=== PATIENT | male | born 1965 | race Caucasian/White ===

== ENCOUNTER 2020-05-04 05:15 | Day surgery (SDC) | payer OTHER ==
[2020-05-01 17:46] VITALS: BMI 29.0
[2020-05-04] MEDS ORDERED: MIDAZOLAM HCL 2 MG/2 ML SINGLE DOSE VIAL ONE ×2 (17:49)
[2020-05-04 20:03] VITALS: BP 158/86; PULSE 78; TEMP 98.2
== END 2020-05-04 20:15 | disposition home or self-care (01) ==
LOC: JASU-SURG 05:15
PROVIDERS: ATTEND Urology
PROC: 0TF3XZZ Fragmentation in Right Kidney Pelvis, External Approach (ICD-10-PCS; principal; 2020-05-04 15:00)
DX: N20.0 Calculus of kidney (principal)

== ENCOUNTER 2021-03-08 04:31 | Day surgery (SDC) | payer OTHER ==
[2021-03-05 11:31] VITALS: BMI 29.0
[2021-03-08] MEDS ORDERED: MIDAZOLAM HCL 2 MG/2 ML SINGLE DOSE VIAL ONE (12:07)
[2021-03-08 14:59] VITALS: BP 157/80; PULSE 66; TEMP 97.3
== END 2021-03-08 14:35 | disposition home or self-care (01) ==
LOC: JASU-SURG 04:31
PROVIDERS: ATTEND Urology
PROC: 0TF3XZZ Fragmentation in Right Kidney Pelvis, External Approach (ICD-10-PCS; principal; 2021-03-08 11:30)
DX: N20.0 Calculus of kidney (principal)

== ENCOUNTER 2021-03-08 19:16 | Inpatient (IN) | payer OTHER ==
[2021-03-08] MEDS ORDERED: LACTATED RINGERS SOLUTION 1000 ML INFUS.BAG IV ONE (20:00)
[2021-03-08] MEDS ORDERED: KETOROLAC TROMETHAMINE 15 MG/ML VIAL IVPUSH ONE ×2 (20:00→20:09)
[2021-03-08] MEDS ORDERED: KETOROLAC TROMETHAMINE 30 MG/1 ML VIAL ONE (20:09)
[2021-03-08 20:13] LABS: BASO % 0.1 % (0-2.0); HEMATOCRIT 41.1 % (35.4-49); HEMOGLOBIN 14.3 GM/dL (11.7-16.9); LYMPH % 5.8 % (8-40); MCH 31.6 pg (25.7-33.7); MCHC 34.6 g/dl (32.0-35.9); MEAN CELL VOLUME 91.1 fl (80-96); MEAN PLT VOLUME 8.7 fl (7.5-11.1); MONO % 3.6 % (3.8-10.2); NEUT % 90.5 % (42.8-82.8); PLATELET COUNT 229 10^3/uL (134-434); RBC 4.51 M/mm3 (4.00-5.60); RDW 13.4 % (11.9-15.9); WHITE BLOOD COUNT 13.4 K/mm3 (4.0-10.0)
[2021-03-08 20:31] LABS: CALCIUM 8.6 mg/dL (8.5-10.1)
[2021-03-08 20:32] LABS: ALBUMIN 3.8 g/dl (3.4-5.0); BLOOD UREA NITROGEN 10.5 mg/dL (7-18)
[2021-03-08 20:35] LABS: CREATININE 1.3 mg/dL (0.55-1.3)
[2021-03-08 20:37] LABS: BILIRUBIN,TOTAL 0.6 mg/dL (0.2-1); TOT PROT 6.9 g/dl (6.4-8.2)
[2021-03-08] MEDS ORDERED: morphine CARPU-JECT 2 MG/1 ML DISP.SYRIN IVPUSH ONE ×2 (20:53→22:08)
[2021-03-08] MEDS ORDERED: MORPHINE SULFATE 2 MG/ML VIAL ONE ×2 (20:58→22:28)
[2021-03-08 22:06] LABS: EPI CELLS 6 /uL (0-25.1); HYALINE CASTS 2 /uL (0-3.1); URINE APPEARANCE CLEAR; URINE BACTERIA 49 /uL (0-1359); URINE BILIRUBIN NEGATIVE (NEGATIVE); URINE COLOR YELLOW; URINE GLUCOSE (UA) NEGATIVE (NEGATIVE); URINE KETONE 1+ (NEGATIVE); URINE LEUK ESTERASE NEGATIVE (NEGATIVE); URINE NITRITE NEGATIVE (NEGATIVE); URINE PROTEIN 1+ (NEGATIVE); URINE RBC 682 /uL (0-23.9); URINE UROBILINOGEN 0.2 mg/dL (0.2-1.0); URINE WBC 12 /uL (0-25.8)
[2021-03-09] MEDS ORDERED: ACETAMINOPHEN 1000 MG/100 ML VIAL (NON FORMULARY) IVPB PRN (01:20)
[2021-03-09 02:54] LABS: INR 1.01 (0.83-1.09); PROTHROMBIN TIME (PATIENT) 12.4 SEC (9.7-13.0)
[2021-03-09 02:57] LABS: ACTIVATED PTT 27.8 SECONDS (25.2-36.5)
[2021-03-09 07:08] LABS: HEMATOCRIT 38.9 % (35.4-49); HEMOGLOBIN 13.7 GM/dL (11.7-16.9); MCHC 35.3 g/dl (32.0-35.9); MEAN CELL VOLUME 90.7 fl (80-96); MEAN PLT VOLUME 8.9 fl (7.5-11.1); PLATELET COUNT 196 10^3/uL (134-434); RBC 4.29 M/mm3 (4.00-5.60); RDW 13.4 % (11.9-15.9); WHITE BLOOD COUNT 9.9 K/mm3 (4.0-10.0)
[2021-03-09 07:30] LABS: BLOOD UREA NITROGEN 10.2 mg/dL (7-18); CALCIUM 8.4 mg/dL (8.5-10.1)
[2021-03-09 07:33] LABS: CREATININE 1.1 mg/dL (0.55-1.3)
[2021-03-09] MEDS ORDERED: MORPHINE SULFATE 2 MG/ML VIAL ONE (08:32)
[2021-03-09] MEDS: MORPHINE SULFATE 2 MG/ML VIAL IVPUSH PRN ×2 (08:37→16:57)
[2021-03-09] MEDS: SODIUM CHLORIDE 1,000 ML IV SCH ×2 (08:38→16:58)
[2021-03-09] MEDS ORDERED: TAMSULOSIN HCL 0.4 MG CAP ONE (10:17)
[2021-03-09] MEDS ORDERED: LISINOPRIL 20 MG TABLET ONE (10:17)
[2021-03-09] MEDS: TAMSULOSIN HCL 0.4 MG CAP PO SCH (10:21)
[2021-03-09] MEDS: LISINOPRIL 20 MG TABLET PO SCH (10:21)
[2021-03-09 15:44] LABS: BASO % 0.5 % (0-2.0); EOS % 0.4 % (0-4.5); HEMATOCRIT 37.5 % (35.4-49); HEMOGLOBIN 12.9 GM/dL (11.7-16.9); LYMPH % 22.5 % (8-40); MCH 31.2 pg (25.7-33.7); MCHC 34.3 g/dl (32.0-35.9); MEAN CELL VOLUME 90.9 fl (80-96); MEAN PLT VOLUME 8.5 fl (7.5-11.1); MONO % 8.3 % (3.8-10.2); NEUT % 68.3 % (42.8-82.8); PLATELET COUNT 199 10^3/uL (134-434); RBC 4.13 M/mm3 (4.00-5.60); RDW 13.4 % (11.9-15.9); WHITE BLOOD COUNT 7.4 K/mm3 (4.0-10.0)
[2021-03-09 18:22] VITALS: BMI 33.0
[2021-03-09 18:52] LABS: BASO % 0.4 % (0-2.0); EOS % 0.8 % (0-4.5); HEMATOCRIT 35.6 % (35.4-49); HEMOGLOBIN 12.3 GM/dL (11.7-16.9); LYMPH % 21.8 % (8-40); MCH 31.6 pg (25.7-33.7); MCHC 34.6 g/dl (32.0-35.9); MEAN CELL VOLUME 91.3 fl (80-96); MEAN PLT VOLUME 8.5 fl (7.5-11.1); MONO % 7.9 % (3.8-10.2); NEUT % 69.1 % (42.8-82.8); PLATELET COUNT 186 10^3/uL (134-434); RDW 13.6 % (11.9-15.9); WHITE BLOOD COUNT 8.5 K/mm3 (4.0-10.0)
[2021-03-10] MEDS: SODIUM CHLORIDE 1,000 ML IV SCH ×3 (01:46→18:06)
[2021-03-10 08:58] LABS: BASO % 0.4 % (0-2.0); EOS % 0.8 % (0-4.5); HEMATOCRIT 33.1 % (35.4-49); HEMOGLOBIN 11.5 GM/dL (11.7-16.9); LYMPH % 19.1 % (8-40); MCH 31.8 pg (25.7-33.7); MCHC 34.9 g/dl (32.0-35.9); MEAN PLT VOLUME 8.6 fl (7.5-11.1); MONO % 8.1 % (3.8-10.2); NEUT % 71.6 % (42.8-82.8); PLATELET COUNT 181 10^3/uL (134-434); RBC 3.63 M/mm3 (4.00-5.60); RDW 13.8 % (11.9-15.9); WHITE BLOOD COUNT 8.1 K/mm3 (4.0-10.0)
[2021-03-10 09:22] LABS: ALBUMIN 3.2 g/dl (3.4-5.0); BLOOD UREA NITROGEN 9.9 mg/dL (7-18); CALCIUM 7.9 mg/dL (8.5-10.1)
[2021-03-10 09:23] LABS: MAGNESIUM 2.2 mg/dL (1.8-2.4)
[2021-03-10 09:26] LABS: CREATININE 1.2 mg/dL (0.55-1.3); PHOSPHOROUS 2.1 mg/dL (2.5-4.9)
[2021-03-10 09:28] LABS: BILIRUBIN,TOTAL 0.8 mg/dL (0.2-1)
[2021-03-10 09:29] LABS: TOT PROT 5.9 g/dl (6.4-8.2)
[2021-03-10] MEDS: LISINOPRIL 20 MG TABLET PO SCH (10:01)
[2021-03-10] MEDS: TAMSULOSIN HCL 0.4 MG CAP PO SCH (10:01)
[2021-03-10] MEDS ORDERED: NAPH,MB-DB/K PH,MBDB POWDER PACKET PO ONE (10:11)
[2021-03-10] MEDS: MORPHINE SULFATE 2 MG/ML VIAL IVPUSH PRN ×2 (10:33→22:09)
[2021-03-10] MEDS: ARTIFICIAL TEARS (POLYVINYL ALCOHOL) OPTH DROPS OU SCH ×2 (15:37→22:10)
[2021-03-10 21:25] LABS: HEMATOCRIT 32.4 % (35.4-49); HEMOGLOBIN 11.1 GM/dL (11.7-16.9); MCH 31.3 pg (25.7-33.7); MCHC 34.1 g/dl (32.0-35.9); MEAN CELL VOLUME 91.7 fl (80-96); MEAN PLT VOLUME 8.3 fl (7.5-11.1); PLATELET COUNT 178 10^3/uL (134-434); RBC 3.54 M/mm3 (4.00-5.60); RDW 13.6 % (11.9-15.9); WHITE BLOOD COUNT 8.5 K/mm3 (4.0-10.0)
[2021-03-10] MEDS: DOCUSATE SODIUM 100 MG CAPSULE (FP) PO SCH (22:08)
[2021-03-11] MEDS: SODIUM CHLORIDE 1,000 ML IV SCH ×3 (03:14→22:32)
[2021-03-11] MEDS: ACETAMINOPHEN 325 MG TABLET (FP) PO PRN ×2 (06:47→18:31)
[2021-03-11 09:10] LABS: HEMATOCRIT 31.2 % (35.4-49); HEMOGLOBIN 10.9 GM/dL (11.7-16.9); MCH 32.1 pg (25.7-33.7); MEAN CELL VOLUME 91.7 fl (80-96); PLATELET COUNT 183 10^3/uL (134-434); RDW 13.2 % (11.9-15.9); WHITE BLOOD COUNT 9.1 K/mm3 (4.0-10.0)
[2021-03-11 09:35] LABS: BLOOD UREA NITROGEN 7.8 mg/dL (7-18); CALCIUM 7.5 mg/dL (8.5-10.1)
[2021-03-11 09:38] LABS: CREATININE 0.9 mg/dL (0.55-1.3)
[2021-03-11 09:40] LABS: BILIRUBIN,TOTAL 0.8 mg/dL (0.2-1)
[2021-03-11] MEDS: DOCUSATE SODIUM 100 MG CAPSULE (FP) PO SCH (09:48)
[2021-03-11] MEDS: TAMSULOSIN HCL 0.4 MG CAP PO SCH (09:48)
[2021-03-11] MEDS: NAPH,MB-DB/K PH,MBDB POWDER PACKET PO SCH ×2 (09:48→21:37)
[2021-03-11] MEDS: LISINOPRIL 20 MG TABLET PO SCH (09:48)
[2021-03-11] MEDS: ARTIFICIAL TEARS (POLYVINYL ALCOHOL) OPTH DROPS OU SCH ×2 (09:48→21:37)
[2021-03-11] MEDS: amLODIPine BESYLATE 5 MG TABLET (FP) PO SCH (09:48)
[2021-03-11] MEDS ORDERED: BISACODYL 10 MG SUPP.RECT PR ONE (11:09)
[2021-03-11 11:44] LABS: MAGNESIUM 2.2 mg/dL (1.8-2.4)
[2021-03-11 11:48] LABS: PHOSPHOROUS 2.5 mg/dL (2.5-4.9)
[2021-03-11 21:36] LABS: PH,URINE 6.5 (5.0-8.0); URINE APPEARANCE CLEAR; URINE BILIRUBIN NEGATIVE (NEGATIVE); URINE COLOR YELLOW; URINE GLUCOSE (UA) NEGATIVE (NEGATIVE); URINE KETONE NEGATIVE (NEGATIVE); URINE LEUK ESTERASE NEGATIVE (NEGATIVE); URINE NITRITE NEGATIVE (NEGATIVE); URINE PROTEIN NEGATIVE (NEGATIVE); URINE UROBILINOGEN 0.2 mg/dL (0.2-1.0)
[2021-03-11] MEDS ORDERED: DOCUSATE SODIUM 100 MG CAPSULE (FP) PO SCH (22:00)
[2021-03-12 08:43] LABS: BASO % 0.4 % (0-2.0); EOS % 1.4 % (0-4.5); HEMATOCRIT 30.8 % (35.4-49); LYMPH % 18.2 % (8-40); MCH 32.4 pg (25.7-33.7); MCHC 35.5 g/dl (32.0-35.9); MEAN CELL VOLUME 91.3 fl (80-96); MEAN PLT VOLUME 8.6 fl (7.5-11.1); MONO % 7.9 % (3.8-10.2); NEUT % 72.1 % (42.8-82.8); PLATELET COUNT 209 10^3/uL (134-434); RBC 3.37 M/mm3 (4.00-5.60); RDW 13.6 % (11.9-15.9); WHITE BLOOD COUNT 9.1 K/mm3 (4.0-10.0)
[2021-03-12 09:00] LABS: ALBUMIN 3.1 g/dl (3.4-5.0); BLOOD UREA NITROGEN 8.9 mg/dL (7-18)
[2021-03-12 09:02] LABS: CREATININE 0.9 mg/dL (0.55-1.3)
[2021-03-12 09:03] LABS: CALCIUM 8.1 mg/dL (8.5-10.1); MAGNESIUM 2.2 mg/dL (1.8-2.4); PHOSPHOROUS 2.8 mg/dL (2.5-4.9)
[2021-03-12 09:07] LABS: TOT PROT 6.2 g/dl (6.4-8.2)
[2021-03-12] MEDS: amLODIPine BESYLATE 5 MG TABLET (FP) PO SCH (10:56)
[2021-03-12] MEDS: NAPH,MB-DB/K PH,MBDB POWDER PACKET PO SCH (10:56)
[2021-03-12] MEDS: ARTIFICIAL TEARS (POLYVINYL ALCOHOL) OPTH DROPS OU SCH (10:56)
[2021-03-12] MEDS: LISINOPRIL 20 MG TABLET PO SCH (10:56)
[2021-03-12] MEDS: TAMSULOSIN HCL 0.4 MG CAP PO SCH (10:56)
[2021-03-12] MEDS: SODIUM CHLORIDE 1,000 ML IV SCH (10:56)
[2021-03-12 18:43] VITALS: BP 149/88; PULSE 117; TEMP 101.2
[2021-03-18 11:57] LABS: SIZE 2 x 2 mm; WEIGHT 7 mg
[2021-03-18 11:58] LABS: CA OXALATE MONOHYDR. 70%
== END 2021-03-12 20:07 | disposition home or self-care (01) | DRG 813 ==
LOC: JER 19:16 → JERBED 03-09 00:29 → J5S 03-09 16:19
PROVIDERS: ADMIT Internal Medicine; ATTEND Internal Medicine
DX: N99.840 Postprocedural hematoma of a genitourinary system organ or structure following a genitourinary system procedure (principal); I10 Essential (primary) hypertension; D72.829 Elevated white blood cell count, unspecified; R31.0 Gross hematuria; K59.00 Constipation, unspecified; Y83.9 Surgical procedure, unspecified as the cause of abnormal reaction of the patient, or of later complication, without mention of misadventure at the time of the procedure
CPT/HCPCS: 36415; 71045-TC-FY; 74176-TC; 80048; 80053; 81003; 82360; 83735; 84100; 85025; 85027; 85610; 85730; 87040; 87086; 93005; 93010; 99285-25; C9803; U0003; U0005

== ENCOUNTER 2021-05-03 04:47 | Day surgery (SDC) | payer OTHER ==
[2021-04-29 13:36] VITALS: BMI 29.9
[2021-05-03] MEDS ORDERED: MIDAZOLAM HCL 2 MG/2 ML SINGLE DOSE VIAL ONE (13:56)
[2021-05-03] MEDS ORDERED: PROPOFOL 20 ML ONE (13:56)
[2021-05-03 16:14] VITALS: BP 140/76; PULSE 73; TEMP 98.4
== END 2021-05-03 16:20 | disposition home or self-care (01) ==
LOC: JASU-SURG 04:47
PROVIDERS: ATTEND Urology
PROC: 0TF4XZZ Fragmentation in Left Kidney Pelvis, External Approach (ICD-10-PCS; principal; 2021-05-03 13:00)
DX: N20.0 Calculus of kidney (principal)

== ENCOUNTER 2022-08-02 10:35 | Emergency (ER) | payer OTHER ==
[2022-08-02 10:42] VITALS: BP 159/98; PULSE 93; RESP 18; TEMP 98; BMI 29.9
[2022-08-02] MEDS ORDERED: AZITHROMYCIN 250 MG TABLET PO ONE (11:48)
== END 2022-08-02 12:23 | disposition home or self-care (01) ==
LOC: JERFT 10:35 → JER 10:35 → JERFT 12:23
DX: J20.9 Acute bronchitis, unspecified (principal); R51.9 Headache, unspecified; J02.9 Acute pharyngitis, unspecified
CPT/HCPCS: 0241U-QW; 71046-TC-FY; 99284-25

== ENCOUNTER 2022-09-19 04:23 | Day surgery (SDC) | payer OTHER ==
[2022-09-16 08:51] VITALS: BMI 29.9
[2022-09-19 10:24] VITALS: RESP 20
[2022-09-19] MEDS ORDERED: MIDAZOLAM HCL 2 MG/2 ML SINGLE DOSE VIAL ONE (12:31)
[2022-09-19 14:52] VITALS: BP 151/94; PULSE 62; TEMP 98.1
== END 2022-09-19 15:21 | disposition home or self-care (01) ==
LOC: JASU-SURG 04:23
PROVIDERS: ATTEND Urology
PROC: 0TF3XZZ Fragmentation in Right Kidney Pelvis, External Approach (ICD-10-PCS; principal; 2022-09-19 12:00)
DX: N20.0 Calculus of kidney (principal)

== ENCOUNTER 2023-01-14 10:34 | Emergency (ER) | payer OTHER ==
[2023-01-14 10:39] VITALS: BP 149/88; PULSE 96; RESP 18; TEMP 98.5; BMI 30.7
== END 2023-01-14 11:46 | disposition home or self-care (01) ==
LOC: JERFT 10:34
DX: J02.0 Streptococcal pharyngitis (principal); J01.90 Acute sinusitis, unspecified
CPT/HCPCS: 0241U-QW; 87651; 99283-25

== ENCOUNTER 2023-05-25 13:21 | Emergency (ER) | payer OTHER ==
[2023-05-25 13:38] VITALS: BP 141/84; PULSE 84; RESP 17; TEMP 98.3; BMI 28.4
== END 2023-05-25 17:34 | disposition home or self-care (01) ==
LOC: JER 13:21
DX: R09.81 Nasal congestion (principal); R09.82 Postnasal drip; R51.9 Headache, unspecified; J02.9 Acute pharyngitis, unspecified; R50.9 Fever, unspecified; J32.9 Chronic sinusitis, unspecified
CPT/HCPCS: 70486-TC; 99284-25